=== PATIENT | female | born 1970 | race Asian ===

== ENCOUNTER 2019-02-22 16:46 | Emergency (ER) | payer BC ==
[2019-02-22 16:59] VITALS: BP 142/88
--- NOTE | 2019-02-22 17:00 | UC ---
Cardiac HPI - HPI Summary HPI Summary: cHEST PAIN W/ BREATHING FOR X1 WEEK AFTER BEING SICK W/ COUGH AND SUBJ. FEVERS. DENIES CHEST PAIN W/ EXERTION, N/V, SOB, DIZZINESS AND FATIGUE. DENIES SICK CONTACTS. FEELS HER COUGH IS SLOWLY GETTING BETTER BUT THERE IS STILL SOME CHEST PAIN W/ DEEP BREATHING AT LOWER MID CHEST. - History of Current Complaint Chief Complaint: UCChestPain Stated Complaint: CHEST PAIN Time Seen by Provider: 02/22/19 16:55 Hx Obtained From: Patient Hx Last Menstrual Period: 04/2013 Pain Intensity: 5 - Allergy/Home Medications Allergies/Adverse Reactions: Allergies Allergy/AdvReac Type Severity Reaction Status Date / Time No Known Allergies Allergy Verified 02/22/19 16:48 Home Medications: Home Medications Dm/Acetaminophen/Doxylamine [Vicks Nyquil Cold & Flu N 15-6.25-325 mg] 1 cap PO PRN 02/22/19 [History] Magnesium Oxide [Magnesium] 400 mg PO DAILY 02/22/19 [History Confirmed 02/22/19 ] Naproxen TAB* [Naprosyn 250 mg TAB*] 250 mg PO Q8H PRN 02/22/19 [History Confirmed 02/22/19] PMH/Surg Hx/FS Hx/Imm Hx Previously Healthy: Yes - Surgical History Surgical History: Yes Surgery Procedure, Year, and Place: APPROX 2 YEARS AGO ON LT MAXILLARY SINUS. Dental implant - Family History Known Family History: Positive: Cardiac Disease - Social History Alcohol Use: None Substance Use Type: None Smoking Status (MU): Never Smoked Tobacco - Immunization History Most Recent Influenza Vaccination: 03/2013 Review of Systems All Other Systems Reviewed And Are Negative: Yes Constitutional: Negative: Fever, Chills, Fatigue Skin: Negative: Rash Respiratory: Negative: Shortness Of Breath, Cough Cardiovascular: Positive: Chest Pain. Negative: Palpitations Gastrointestinal: Negative: Nausea Neurological: Negative: Headache, Weakness, Paresthesia Physical Exam Triage Information Reviewed: Yes Appearance: Well-Appearing Vital Signs: Initial Vital Signs Temp 98.6 F 02/22/19 16:50 Pulse 77 02/22/19 16:50 Resp 16 02/22/19 16:50 BP 142/88 02/22/19 16:50 Pulse Ox 100 02/22/19 16:50 Vital Signs Reviewed: Yes Eyes: Positive: Conjunctiva Clear ENT: Positive: Pharynx normal, TMs normal Neck exam: Normal Respiratory: Positive: Lungs clear, Other: - chest tenderness w/ palpatyion Cardiovascular Exam: Normal Neurological: Positive: Alert Skin: Negative: Rashes - Assessment/Plan Course Of Treatment: Chest pain for approx 1 wk after having a URI which pt feels is improving. Given her age we obtained an EKG. EKG REVIEWED W/ DR. RODRIGUEZ AND UNREMARKABLE. XRAY DID NOT SHOW ANY LUNG ABNORMALITIES. Suspect post viral costochondritis w/ pleurisy. Vitals are good and exam is unremarkable w/ pain being reproduced. For pain ok to take nsaids Q6 -8hrs which she reports having at home. - Differential Diagnoses - Chest Pain Differential Diagnosis/HQI/PQRI: Chest Wall - Differential Diagnoses - Palpitations Differential Diagnosis/HQI/PQRI: Other - Clinical Impression Provider Diagnosis: Costochondritis, Pleurisy Discharge ED - Sign-Out/Discharge Documenting (check all that apply): Patient Departure All imaging exams completed and their final reports reviewed: Yes - Discharge Plan Condition: Good Disposition: HOME Patient Education Materials: Costochondritis (ED) Referrals: Ama Gan MD [Primary Care Provider] - Additional Instructions: Please take your naproxen that's at home every 6 hrs - Billing Disposition and Condition Condition: GOOD Disposition: Home
== END 2019-02-22 18:04 | disposition home or self-care (01) ==
LOC: UCCORT 16:46
DX: M94.0 Chondrocostal junction syndrome [Tietze] (principal); R09.1 Pleurisy
CPT/HCPCS: 71046; 93005; 99211; G0463

== ENCOUNTER 2019-09-18 09:17 | Emergency (ER) | payer BC ==
[2019-09-18 11:42] VITALS: BP 164/108
== END 2019-09-18 11:42 | disposition home or self-care (01) ==
LOC: UCCORT 09:17